=== PATIENT | male | born 1975 | race Caucasian/White ===

== ENCOUNTER 2017-05-26 16:18 | Emergency (ER) | payer MEDICAID ==
[~2017-05-26] VITALS: Ht 165.1 cm; Wt 73.1 kg
[~2017-05-26 16:18] MED LIST: ALPR0.252 PO; LORA-476 PO; METO25TA PO
[2017-05-26 16:42] VITALS: BP 132/92
[2017-05-26 17:33] LABS: BASOPHILS # (AUTO) 0.2 K/uL (0.00-0.22); BASOPHILS % (AUTO) 1.7 % (0.0-2.0); EOSINOPHILS # (AUTO) 0.1 K/uL (0-0.4); EOSINOPHILS % (AUTO) 1.2 % (0.0-4.0); HEMATOCRIT 46.9 % (36-52); HEMOGLOBIN 15.3 g/dL (12.0-18.0); LYMPHOCYTES # (AUTO) 1.3 K/uL (2.0-11.5); LYMPHOCYTES % (AUTO) 10.8 % (20.5-51.1); MEAN CORPUSCULAR HEMOGLOBIN 28 pg (27-31); MEAN CORPUSCULAR HGB CONC 33 g/dL (33-37); MEAN CORPUSCULAR VOLUME 86 fL (80-94); MONOCYTES # (AUTO) 0.4 K/uL (0.8-1.0); MONOCYTES % (AUTO) 3.7 % (1.7-9.3); NEUTROPHILS # (AUTO) 10.1 K/uL (1.8-7.7); NEUTROPHILS % (AUTO) 82.6 % (42.2-75.2); PLATELET COUNT (AUTO) 218 K/uL (140-450); RED BLOOD CELL COUNT(AUTO) 5.47 MIL/uL (4.20-6.10); RED CELL DISTRIBUTION WIDTH 12.5 % (11.6-13.7); WHITE BLOOD COUNT (AUTO) 12.1 K/uL (4.8-10.8)
[2017-05-26 17:39] LABS: ANION GAP 14.6 (8-16); CARBON DIOXIDE 29.9 mmol/L (21-32); CREATININE 0.9 mg/dL (0.7-1.3); POTASSIUM 4.5 mmol/L (3.5-5.1)
[2017-05-26 17:45] LABS: ALBUMIN 4.3 g/dL (3.4-5.0); PROTHROMBIN TIME 10.2 secs (10.8-13.4); TOTAL BILIRUBIN 0.4 mg/dL (0.0-1.0)
--- NOTE | 2017-05-26 19:25 | NUR ---
PATIENT AMBULATED TO ER BED 3.
--- NOTE | 2017-05-26 19:30 | NUR ---
PATIENT IS A 42 Y/O MALE WHO PRESENTS TO THE ED C/O ABD PAIN. PT STATES, "MY STOMACH HAS STARTED TO HURT TODAY SINCE 4." PT REPORTS 8/10 ACHING ABD PAIN THAT DOES NOT RADIATE. PT DENIES CP, SOB, REPORTS NAUSEA/VOMITING DENIES DIARRHEA. PT AAOX4, RR EVEN/UNLABORED. PT REPOSITIONED FOR COMFORT, BED IN LOWEST POSITION. ER MD DR. VILLALBA NOTIFIED. WILL CONTINUE TO MONITOR.
[2017-05-26] MEDS ORDERED: DICYCLOMINE HCL LIQUID 10 MG/5 ML UDC PO ONE (21:25)
[2017-05-26] MEDS ORDERED: LIDOCAINE VISCOUS 2% 20 ML UDC PO ONE (21:25)
[2017-05-26] MEDS ORDERED: ALUMINUM HYD/MAG/SIMETHICONE 30 ML UDC PO ONE (21:25)
[2017-05-26 21:45] VITALS: BP 139/82
--- NOTE | 2017-05-26 21:45 | NUR ---
Patient discharged with v/s stable. Written and verbal after care instructions given and explained. Patient alert, oriented and verbalized understanding of instructions. Ambulatory with steady gait. All questions addressed prior to discharge. ID band removed. Patient advised to follow up with PMD. Rx of OMEPRAZOLE 40MG given. Patient educated on indication of medication including possible reaction and side effects. Opportunity to ask questions provided and answered.
== END 2017-05-26 21:45 | disposition home or self-care (01) ==
LOC: MED 16:18
DX: K29.00 Acute gastritis without bleeding (principal); I10 Essential (primary) hypertension
CPT/HCPCS: 36415; 71046; 80053; 83690; 83880; 84484; 85025; 85610; 85730; 93005; 99285

== ENCOUNTER 2017-05-28 09:49 | Inpatient (IN) | payer MEDICAID ==
[~2017-05-28] VITALS: Ht 160 cm; Wt 78.6 kg
[2017-05-28 09:51] VITALS: BP 115/74
[2017-05-28] MEDS ORDERED: NACL 0.9% 1,000 ML IV ONE (10:00)
[2017-05-28] MEDS ORDERED: ONDANSETRON 4 MG/2 ML VIAL IVP ONE (10:00)
--- NOTE | 2017-05-28 10:12 | NUR ---
PATIENT PRESENTS TO ED WITH C/O rt flank pain, for 2days, nausea, . PT STATES HE HAS EPIGASTRIC PAIN TOO.SKIN IS PINK/WARM/DRY; AAOX4 WITH EVEN AND STEADY GAIT; LUNGS CLEAR BL; HR EVEN AND REGULAR; PT DENIES ANY FEVER, CP, SOB, OR COUGH AT THIS TIME; PATIENT STATES PAIN OF 8/10 AT THIS TIME;PATIENT POSITIONED FOR COMFORT; HOB ELEVATED; BEDRAILS UP X2; BED DOWN. ER MD MADE AWARE OF PT STATUS.
[2017-05-28] MEDS ORDERED: KETOROLAC 30 MG/ML VIAL IVP ONE (10:15)
--- NOTE | 2017-05-28 10:25 | NUR ---
WENT TO CT SCAN ACCOMPANIED BY TECH.
[2017-05-28 10:30] LABS: BASOPHILS # (AUTO) 0.2 K/uL (0.00-0.22); BASOPHILS % (AUTO) 1.5 % (0.0-2.0); EOSINOPHILS # (AUTO) 0.2 K/uL (0-0.4); EOSINOPHILS % (AUTO) 1.5 % (0.0-4.0); HEMOGLOBIN 14.3 g/dL (12.0-18.0); LYMPHOCYTES # (AUTO) 1.3 K/uL (2.0-11.5); LYMPHOCYTES % (AUTO) 10.3 % (20.5-51.1); MEAN CORPUSCULAR HEMOGLOBIN 28 pg (27-31); MEAN CORPUSCULAR HGB CONC 32 g/dL (33-37); MEAN CORPUSCULAR VOLUME 87 fL (80-94); MONOCYTES # (AUTO) 0.8 K/uL (0.8-1.0); NEUTROPHILS # (AUTO) 10.2 K/uL (1.8-7.7); NEUTROPHILS % (AUTO) 80.7 % (42.2-75.2); PLATELET COUNT (AUTO) 196 K/uL (140-450); RED BLOOD CELL COUNT(AUTO) 5.18 MIL/uL (4.20-6.10); RED CELL DISTRIBUTION WIDTH 12.5 % (11.6-13.7); WHITE BLOOD COUNT (AUTO) 12.7 K/uL (4.8-10.8)
[2017-05-28 10:31] LABS: APPEARANCE,URINE CLEAR (CLEAR); BILIRUBIN,URINE 1+ (NEGATIVE); BLOOD, URINE TRACE-I (NEGATIVE); COLOR,URINE YELLOW (YELLOW); LEUKOCYTE ESTERASE ,URINE NEGATIVE (NEGATIVE); NITRITE, URINE NEGATIVE (NEGATIVE); UGLUCOSE NEGATIVE (NEGATIVE)
--- NOTE | 2017-05-28 10:37 | NUR ---
back from ct scan accompanied by arik.
[2017-05-28 11:02] LABS: ANION GAP 12.5 (8-16); CREATININE 0.9 mg/dL (0.7-1.3); POTASSIUM 4.5 mmol/L (3.5-5.1)
--- NOTE | 2017-05-28 11:02 | NUR ---
pt verbalizes relief from pain;no facial grimmacing noted;painscale of 5/10;will continue to monitor.
[2017-05-28 11:08] LABS: ALBUMIN 3.5 g/dL (3.4-5.0); TOTAL BILIRUBIN 0.9 mg/dL (0.0-1.0)
[2017-05-28 11:27] LABS: RBC,URINE 0-5 (RARE) /HPF (0-5); WBC,URINE 0-5 (RARE) /HPF (0-5)
--- NOTE | 2017-05-28 11:47 | NUR ---
US AT BEDSIDE.
--- NOTE | 2017-05-28 12:41 | NUR ---
PT RESTING ON BED;EVEN AND UNLABORED BREATHING;NAD;NEEDS ATTENDED;WILL CONTINUE TO MONITOR.
[2017-05-28] MEDS ORDERED: LISI10TA11 PO (13:04)
[2017-05-28] MEDS ORDERED: ONDANSETRON 4 MG/2 ML VIAL IVP PRN (13:05)
[2017-05-28] MEDS ORDERED: ACETAMINOPHEN 325 MG TAB PO PRN (13:05)
[2017-05-28] MEDS ORDERED: metroNIDAZOLE 500 MG/NS PREMIX 100 ML IV SCH (13:15)
[2017-05-28] MEDS ORDERED: LEVOFLOXACIN 750 MG/D5W PREMIX 150 ML IV SCH (13:30)
[2017-05-28 13:35] VITALS: BP 109/70
--- NOTE | 2017-05-28 13:35 | NUR ---
PATIENT ADMITTED TO THE UNIT. PATIENT AWAKE, ALERT AND ORIENTED. PATIENT ON ROOM AIR. NO S/S OF DISTRESS NOTED. PATIENT REPORTS OF 6/10 ABD PAIN. NO VOMITING AT THIS TIME. IV LINE NOTED TO THE RIGHT AC. PATIENT PLACED ON TELE MONITORING. BED LOWERED WITH CALL LIGHT WITHIN REACH. WILL CONTINUE TO MONITOR
--- NOTE | 2017-05-28 13:42 | NUR ---
Patient will be admitted to care of DR BRUNO. Admited to TELE. Will go to room 120 B. Belongings list completed. Report to LESVIA GRIGGS.
[2017-05-28 13:55] LABS: BARBITURATE, URINE NEG. ng/ml (NEG <=200); BENZODIAZEPINE, URINE NEG. ng/mL (NEG <=200); CANNABINOID, URINE NEG. ng/mL (NEG <=50); COCAINE, URINE NEG. ng/mL (NEG <=300); OPIATE, URINE NEG. ng/mL (NEG <=2000); PHENCYCLIDINE SCREEN,URINE NEG. ng/mL (NEG <=25)
[2017-05-28 13:55] LABS: PROTHROMBIN TIME 11.3 secs (10.8-13.4)
[2017-05-28 14:09] LABS: CHOL/HDL RATIO 2.7 (1-4.5); FREE T4 (FREE THYROXINE) 1.23 ng/dL (0.76-1.46); MAGNESIUM 1.9 mg/dL (1.8-2.4); PHOSPHORUS 1.6 mg/dL (2.5-4.9); THYROID STIMULATING HORMONE 1.91 uIU/mL (0.34-3.74)
[2017-05-28] MEDS: NACL 0.9% 1,000 ML IV SCH (14:09)
[2017-05-28] MEDS ORDERED: HYDROmorphone PFS 2 MG/ML SYR IVP PRN (14:20)
--- NOTE | 2017-05-28 14:30 | NUR ---
PATIENT AMBULATED TO THE BATHROOM TO VOID
--- NOTE | 2017-05-28 15:00 | NUR ---
PATIENT SEEN BY DR MONTEZ
[2017-05-28] MEDS ORDERED: ATI.5 PO (15:52)
[2017-05-28 16:00] VITALS: BP 110/67
--- NOTE | 2017-05-28 19:19 | NUR ---
PATIENT REPORT GIVEN AT BEDSIDE. PATIENT ENDORSED IN STABLE CONDITION
--- NOTE | 2017-05-28 19:20 | NUR ---
RECEIVED HANDOFF REPORT FROM AM RN. PATIENT A&OX4. PATIENT DENIES PAIN. IV SITE PATENT AND INTACT. FAMILY AT BEDSIDE. NO SIGNS OR SYMPTOMS OF ACUTE DISTRESS NOTED. SAFETY MEASURES ENSURED. CALL LIGHT WITHIN REACH. WILL CONTINUE TO MONITOR.
[2017-05-28 20:00] VITALS: BP 112/71
[2017-05-28] MEDS: DOCUSATE SODIUM 100 MG GELCAP PO SCH (20:58)
[2017-05-29] VITALS: BP 109/72
--- NOTE | 2017-05-29 02:30 | NUR ---
PT ALERT AND ABLE TO MAKE NEEDS KNOWN. NO ACUTE DISTRESS NOTED. AND FAMILY AT BEDSIDE. WILL CONT TO MONITOR PT.
[2017-05-29 04:00] VITALS: BP 103/63
[2017-05-29] MEDS: HYDROmorphone PFS 2 MG/ML SYR IVP PRN (04:52)
[2017-05-29 06:39] LABS: BASOPHILS # (AUTO) 0.1 K/uL (0.00-0.22); BASOPHILS % (AUTO) 0.9 % (0.0-2.0); EOSINOPHILS # (AUTO) 0.2 K/uL (0-0.4); EOSINOPHILS % (AUTO) 2.7 % (0.0-4.0); HEMATOCRIT 37.6 % (36-52); HEMOGLOBIN 12.7 g/dL (12.0-18.0); LYMPHOCYTES # (AUTO) 1.1 K/uL (2.0-11.5); LYMPHOCYTES % (AUTO) 12.8 % (20.5-51.1); MEAN CORPUSCULAR HEMOGLOBIN 29 pg (27-31); MEAN CORPUSCULAR HGB CONC 34 g/dL (33-37); MEAN CORPUSCULAR VOLUME 85 fL (80-94); MONOCYTES # (AUTO) 0.6 K/uL (0.8-1.0); MONOCYTES % (AUTO) 7.3 % (1.7-9.3); NEUTROPHILS # (AUTO) 6.6 K/uL (1.8-7.7); NEUTROPHILS % (AUTO) 76.3 % (42.2-75.2); PLATELET COUNT (AUTO) 174 K/uL (140-450); RED BLOOD CELL COUNT(AUTO) 4.42 MIL/uL (4.20-6.10); RED CELL DISTRIBUTION WIDTH 12.9 % (11.6-13.7); WHITE BLOOD COUNT (AUTO) 8.6 K/uL (4.8-10.8)
[2017-05-29 07:05] LABS: ANION GAP 9.9 (8-16); CARBON DIOXIDE 30.7 mmol/L (21-32); CREATININE 0.8 mg/dL (0.7-1.3); POTASSIUM 4.6 mmol/L (3.5-5.1)
[2017-05-29 07:08] LABS: MAGNESIUM 1.9 mg/dL (1.8-2.4); PHOSPHORUS 2.2 mg/dL (2.5-4.9)
--- NOTE | 2017-05-29 07:16 | NUR ---
ENDORSED PLAN OF CARE TO AM RN. PATIENT IN STABLE CONDITION.
--- NOTE | 2017-05-29 07:48 | NUR ---
RECEIVED REPORT FROM TOLL LINEMAN NURSE FOR CONTINUITY OF CARE AT BESIDE. PATIENT ALERT AND ABLE TO VERBALIZE NEEDS. NO ACUTE DISTRESS NOTED. AT BEDSIDE. PT WITH IV TO RAC 20G OF NS @ 50CC/HR. WILL CONT TO MONITOR PT.
[2017-05-29 08:00] VITALS: BP 119/69
--- NOTE | 2017-05-29 08:45 | NUR ---
MD IN TO SEE PATIENT. UPDATED PATIENT ON HIS PLAN OF CARE WITH POSSIBLE SURGERY TOMORROW AM. NPO AT MIDNIGHT TONIGHT. WILL CONT TO MONITOR PT.
[2017-05-29] MEDS: DOCUSATE SODIUM 100 MG GELCAP PO SCH ×2 (09:41→20:35)
--- NOTE | 2017-05-29 09:42 | NUR ---
ADMINISTERED SCHEDULE MEDICATION. PATIENT TOLERATED WELL. NO C/O PAIN OR DISCOMFORT. AT BEDSIDE. FAMILY VISITING. WILL CONT TO MONITOR PT.
[2017-05-29] MEDS: NACL 0.9% 1,000 ML IV SCH (11:03)
--- NOTE | 2017-05-29 11:03 | NUR ---
REPLACED IV FLUIDS OF NS. PT IN BED WITH EYES CLOSED RESTING. RESP EVEN AND UNLABORED. NO ACUTE DISTRESS NOTED. AT BEDSIDE. VERBALIZED PT HAD NOT SLEPT WELL LAST NIGHT.WILL CONT TO MONITOR PT.
[2017-05-29 12:34] VITALS: BP 112/70
--- NOTE | 2017-05-29 12:36 | NUR ---
PATIENT AWAKE IN BED HAVING LUNCH. VS CHECKED. VSS. AT BEDSIDE. WILL CONT TO MONITOR PT.
--- NOTE | 2017-05-29 14:30 | NUR ---
PATIENT AWAKE IN BED WITH AT BESIDE. NO ACUTE DISTRESS NOTED. NO C/O PAIN OR DISCOMFORT.BED IN LOW POSITION. CALL LIGHT WITHIN REACH. WILL CONT TO MONITOR PT.
--- NOTE | 2017-05-29 16:30 | NUR ---
PATIENT ALERT AND ABLE TO VERBALIZE NEEDS, NO ACUTE DISTRESS, NO C/O PAIN OR DISCOMFORT. CALL LIGHT WITHIN REACH. AT BEDSIDE.WILL CONT TO MONITOR PT.
[2017-05-29 16:32] VITALS: BP 106/64
--- NOTE | 2017-05-29 18:00 | NUR ---
PATIENT ALERT AND ABLE TO MAKE NEEDS KNOWN. NO ACUTE DISTRESS NOTED. NO C/O PAIN OR DISCOMFORT. AT BEDSIDE WELL DAUGHTERS. CALL LIGHT WITHIN REACH, WILL CONT TO MONITOR PT.
--- NOTE | 2017-05-29 19:20 | NUR ---
PATIENT IS AWAKE ALERT AMBULATORY DENIES PAIN CALM AT THIS TIME.PATIENT IS AWARE HE WILL HAVE A PROCEDURE DONE TOMORROW AND HE CANNOT DRINK OR EAT ANYTHING AFTER MIDNIGHT. CALL LIGHT WITHIN REACH FAMILY AT BEDSIDE WITH THE PATIENT.
--- NOTE | 2017-05-29 19:20 | NUR ---
ENDORSED REPORT TO HOTEL HOUSEKEEPER NURSE AT BEDSIDE FOR CONTINUITY OF CARE.
--- NOTE | 2017-05-29 19:25 | NUR ---
PATIENT IS TELLING ME HAS TO STAY WITH THE PATIENT TAYLOR I INFORMED HER OF HOSPITAL POLICY BUT INSISTS SHE SAYS ITS BECAUSE PATIENT GETS VERY ANXIOUS AND SHE DOESN'T STAY WITH HIM HE WILL LEAVE THE HOSPITAL. I SPOKE TO THE PATIENT AND PATIENT STATES,"IF MY LEAVES I WILL GO HOME TOO I SUFFER FROM ANXIETY AND I NEED HER I WON'T BE ABLE TO STAY HERE THE NIGHT." I SPOKE TO LESVIA RUSSELL AND SHE SAID ITS OK FOR THE TO STAY LONG ITS OK WITH THE ROOM MATE. I ASKED PATIENT'S ROOM MATE IF HE FEELS COMFORTABLE WITH THE LADY STAYING HE SAID." YES, THERE IS NO PROBLEM." I ASKED HIM IF HE WOULD LIKE TO MOVE TO A DIFFERENT ROOM HE SAID." NO, HE HAS NO PROBLEM WITH THE PATIENT'S STAYING." SO STAYING.
[2017-05-29 20:00] VITALS: BP 116/72
--- NOTE | 2017-05-29 20:00 | NUR ---
Patient's Plan of Care was discussed and reviewed with JACQUELIN: MIRELLA
--- NOTE | 2017-05-29 20:20 | NUR ---
PATIENT CAME AND INFORMED ME THAT PATIENT IS HAVING A LOT OF PAIN TO HIS IV SITE AND I WENT TO CHECK ON HIS IV SITE AND I SEE NO REDNESS OR SWELLING OR PUFFINESS.I ASKED THE PATIENT IF HE WOULD LIKE ME TO CHANGE TO IV PATIENT STATES,"YES PLEASE IF YOU CAN MOVE IT TO THE ARM THAT WOULD BE BETTER."I WILL CHANGE HIS IV LINE.
--- NOTE | 2017-05-29 20:30 | NUR ---
I RESTARTED PATIENT IV SITE TO LT FOREARM G#22,GOOD BLOOD RETURN NOTED.IVF INFUSING WELL.PATIENT TOLERATED PROCEDURE WELL.I REMOVED THE IV TO RT AC G#20 PATIENT STATES,"PLEASE REMOVE IT TAKE IT OFF I DON'T WANT IT." PATIENT IV TO RT AC WAS DISCONTINUED.
--- NOTE | 2017-05-29 22:30 | NUR ---
PATIENT'S WAS GIVEN A PILLOW AND SHE IS SITTING NEXT TO THE BED IN A CHAIR.PATIENT STATES,"I FEEL LESS ANXIOUS WITH HER HERE WITH ME, NOW I CAN SLEEP." PATIENT DENIES PAIN CALL LIGHT WITHIN REACH.
[2017-05-30] VITALS: BP 97/60
--- NOTE | 2017-05-30 00:02 | NUR ---
PATIENT IS CURRENTLY SLEEPING HE IS AWARE THAT HE IS NPO AND CANNOT DRINK OR EAT ANYTHING.
--- NOTE | 2017-05-30 03:55 | NUR ---
PATIENT IS CURRENTLY RESTING IN BED AT THIS TIME NO DISTRESS WILL CONTINUE TO MONITOR.CALL LIGHT WITHIN REACH.
[2017-05-30 04:00] VITALS: BP 102/56
[2017-05-30] MEDS: HYDROmorphone PFS 2 MG/ML SYR IVP PRN (04:58)
[2017-05-30] MEDS: NACL 0.9% 1,000 ML IV SCH ×2 (05:03→05:45)
--- NOTE | 2017-05-30 06:28 | NUR ---
PATIENT IS CURRENTLY RESTING IN BED IVF INFUSING WELL IV SITE PATENT.CALL LIGHT WITHIN REACH.
[2017-05-30 06:40] LABS: BASOPHILS # (AUTO) 0.1 K/uL (0.00-0.22); BASOPHILS % (AUTO) 1.1 % (0.0-2.0); EOSINOPHILS # (AUTO) 0.3 K/uL (0-0.4); HEMATOCRIT 41.2 % (36-52); HEMOGLOBIN 13.6 g/dL (12.0-18.0); LYMPHOCYTES # (AUTO) 1.1 K/uL (2.0-11.5); LYMPHOCYTES % (AUTO) 15.2 % (20.5-51.1); MEAN CORPUSCULAR HEMOGLOBIN 28 pg (27-31); MEAN CORPUSCULAR HGB CONC 33 g/dL (33-37); MEAN CORPUSCULAR VOLUME 86 fL (80-94); MONOCYTES # (AUTO) 0.4 K/uL (0.8-1.0); MONOCYTES % (AUTO) 5.9 % (1.7-9.3); NEUTROPHILS # (AUTO) 5.2 K/uL (1.8-7.7); NEUTROPHILS % (AUTO) 73.8 % (42.2-75.2); PLATELET COUNT (AUTO) 206 K/uL (140-450); RED BLOOD CELL COUNT(AUTO) 4.79 MIL/uL (4.20-6.10); RED CELL DISTRIBUTION WIDTH 12.4 % (11.6-13.7); WHITE BLOOD COUNT (AUTO) 7.2 K/uL (4.8-10.8)
--- NOTE | 2017-05-30 07:24 | NUR ---
PATIENT ENDORSED TO LESVIA VICTOR SHE WILL RESUME CARE.
--- NOTE | 2017-05-30 07:25 | NUR ---
RECEIVED REPORT FROM DIRECTOR ZONE NURSE. PT IS SLEEPING IN BED BUT EASILY AWAKEN, PT IS AAOX4, AMBULATORY, SKIN IS INTACT, IV IS ON THE LEFT FOREARM, PATENT, INTACT, FLUSHING WELL, NO S/S OF RESPIRATORY DISTRESS OR DISCOMFORT NOTED, DISCUSSED PLAN OF CARE WITH PT, PT VERBALIZED UNDERSTANDING, SAFETY/FALL PRECAUTIONS ARE IN PLACE, PATIENT'S FAMILY MEMBER IS AT BEDSIDE, CALL LIGHT IS WITHIN REACH, WILL CONTINUE TO MONITOR.
[2017-05-30 07:45] LABS: ANION GAP 12.4 (8-16); CARBON DIOXIDE 29.2 mmol/L (21-32); CREATININE 0.8 mg/dL (0.7-1.3); POTASSIUM 4.6 mmol/L (3.5-5.1)
[2017-05-30 07:48] LABS: MAGNESIUM 1.9 mg/dL (1.8-2.4); PHOSPHORUS 3.6 mg/dL (2.5-4.9)
[2017-05-30 08:00] VITALS: BP 123/67
[2017-05-30] MEDS: DOCUSATE SODIUM 100 MG GELCAP PO SCH ×2 (08:10→21:15)
--- NOTE | 2017-05-30 09:35 | NUR ---
PT IS RESTING IN BED AT THIS TIME, PATIENT'S FAMILY MEMBERS ARE AT BEDSIDE, CALL LIGHT WITHIN REACH.
--- NOTE | 2017-05-30 09:46 | NUR ---
PATIENT HAS BEEN SCREENED AND CATEGORIZED LOW NUTRITION RISK. PATIENT WILL BE SEEN WITHIN 7 DAYS OF ADMISSION. 06/03/[address]
[2017-05-30] MEDS ORDERED: BUPIVACAINE-MPF 0.25% 30 ML VIAL INJ ONE (10:13)
--- NOTE | 2017-05-30 10:55 | NUR ---
PT TAKEN OFF UNIT AND TAKEN TO OR FOR PROCEDURE.
[2017-05-30] MEDS ORDERED: DEXAMETHASONE 4 MG/ML VIAL ONE (11:10)
[2017-05-30] MEDS ORDERED: PROPOFOL 200 MG/20 ML VIAL IV ONE (11:10)
[2017-05-30] MEDS ORDERED: ROCURONIUM 50 MG/5 ML VIAL IV ONE (11:10)
[2017-05-30] MEDS ORDERED: ONDANSETRON 4 MG/2 ML VIAL ONE (11:10)
[2017-05-30] MEDS ORDERED: SEVOFLURANE 250 ML BTL INH ONE (11:10)
[2017-05-30] MEDS ORDERED: MIDAZOLAM 2 MG/2 ML VIAL ONE (11:10)
[2017-05-30] MEDS ORDERED: fentaNYL 0.05 MG/ML VIAL ONE (11:10)
[2017-05-30] MEDS ORDERED: SUCCINYLCHOLINE CHLORIDE 200 MG/10 ML VIAL IVP ONE (11:10)
[2017-05-30] MEDS ORDERED: MEPERIDINE 50 MG/ML SYR ONE (11:10)
[2017-05-30] MEDS ORDERED: LEVOFLOXACIN 500 MG/D5W PREMIX 100 ML IV ONE (11:50)
[2017-05-30] MEDS ORDERED: LACTATED RINGERS 1,000 ML IV SCH (12:01)
[2017-05-30] MEDS ORDERED: HYDROmorphone 1 MG/ML AMP IVP PRN (12:05)
[2017-05-30] MEDS ORDERED: diphenhydrAMINE 50 MG/ML VIAL IVP PRN (12:05)
[2017-05-30] MEDS ORDERED: ONDANSETRON 4 MG/2 ML VIAL IVP PRN (12:05)
[2017-05-30] MEDS ORDERED: MEPERIDINE 25 MG/ML SYR IVP PRN (12:05)
[2017-05-30] MEDS ORDERED: THROMBIN KIT 20 MU VIAL TP ONE (12:26)
[2017-05-30] MEDS: DEXT 5% / NACL 0.45% 1,000 ML IV SCH ×2 (13:20→23:20)
[2017-05-30] MEDS ORDERED: metroNIDAZOLE 500 MG/NS PREMIX 100 ML IV ONE (13:26)
[2017-05-30] MEDS ORDERED: MEPERIDINE 25 MG/ML SYR ONE (13:37)
[2017-05-30 13:49] LABS: BASOPHILS # (AUTO) 0.2 K/uL (0.00-0.22); BASOPHILS % (AUTO) 2.1 % (0.0-2.0); EOSINOPHILS # (AUTO) 0.1 K/uL (0-0.4); EOSINOPHILS % (AUTO) 1.2 % (0.0-4.0); HEMATOCRIT 39.2 % (36-52); HEMOGLOBIN 13.2 g/dL (12.0-18.0); LYMPHOCYTES # (AUTO) 0.5 K/uL (2.0-11.5); LYMPHOCYTES % (AUTO) 5.7 % (20.5-51.1); MEAN CORPUSCULAR HEMOGLOBIN 29 pg (27-31); MEAN CORPUSCULAR HGB CONC 34 g/dL (33-37); MEAN CORPUSCULAR VOLUME 85 fL (80-94); MONOCYTES # (AUTO) 0.1 K/uL (0.8-1.0); MONOCYTES % (AUTO) 1.2 % (1.7-9.3); NEUTROPHILS # (AUTO) 8.7 K/uL (1.8-7.7); NEUTROPHILS % (AUTO) 89.8 % (42.2-75.2); PLATELET COUNT (AUTO) 189 K/uL (140-450); RED BLOOD CELL COUNT(AUTO) 4.59 MIL/uL (4.20-6.10); RED CELL DISTRIBUTION WIDTH 12.5 % (11.6-13.7)
[2017-05-30 14:01] LABS: WHITE BLOOD COUNT (AUTO) 9.6 K/uL (4.8-10.8)
[2017-05-30] MEDS: HYDROmorphone PFS 2 MG/ML SYR ONE ×2 (14:07→14:17)
[2017-05-30 14:10] LABS: CARBON DIOXIDE 29.2 mmol/L (21-32); CREATININE 0.8 mg/dL (0.7-1.3); POTASSIUM 4.2 mmol/L (3.5-5.1)
[2017-05-30 14:16] LABS: ALBUMIN 2.9 g/dL (3.4-5.0); TOTAL BILIRUBIN 0.6 mg/dL (0.0-1.0)
[2017-05-30] MEDS: MIDAZOLAM 2 MG/2 ML VIAL ONE ×2 (14:22→14:32)
[2017-05-30] MEDS ORDERED: MIDAZOLAM 2 MG/2 ML VIAL IV ONE (14:40)
--- NOTE | 2017-05-30 15:00 | NUR ---
PT RETURNED TO UNIT FROM OR. AOX4. PT HAS 4 ABDOMINAL INCISIONS CLOSED WITH GLUE. NO S/S OF RESPIRATORY DISTRESS OR DISCOMFORT NOTED. B/P 112/75, HR 125, SAO2 94%, TEMP. 98.3 F ORAL. PT RESTING IN BED WITH FAMILY BY HIS SIDE. CALL LIGHT WITHIN REACH. WILL CONTINUE TO MONITOR.
[2017-05-30 16:00] VITALS: BP 111/71
--- NOTE | 2017-05-30 16:00 | NUR ---
CALLED DR. MONTEZ WITH THE PATIENT'S RECENT LAB RESULTS.
--- NOTE | 2017-05-30 17:00 | NUR ---
PT RESTING IN BED. FAMILY AT HIS BEDSIDE. PT ON CLEAR LIQUID DIET. PT FEELING FULL AND SLOWLY EATING DINNER WITH BREAKS IN BETWEEN. CALL LIGHT WITHIN REACH. BED IN LOWEST POSITION. WILL CONTINUE TO MONITOR.
[2017-05-30] MEDS: HYDROcodone/APAP 7.5/325 MG 1 TAB PO PRN (18:34)
--- NOTE | 2017-05-30 18:35 | NUR ---
PT HAS COMPLAINED OF PAIN 6/10. WILL MEDICATE WITH PRN MEDICATION. FAMILY IS AT BEDSIDE. CALL LIGHT IS WITHIN REACH. WILL CONTINUE TO MONITOR.
--- NOTE | 2017-05-30 19:27 | NUR ---
RECEIVED REPORT FROM DAY SHIFT NURSE. PT IN BED, NO C/O PAIN AT THIS TIME. AT BEDSIDE. NO DISTRESS NOTED. 4 ABDOMINAL INCISION CLOSED WITH GLUE. NO BLEEDING NOTED. IV TO LEFT FA #22G, D5 1/2 NS AT 100 ML/HR, INFUSING WELL. CALL LIGHT WITHIN REACH. WILL CONTINUE TO MONITOR.
--- NOTE | 2017-05-30 19:27 | NUR ---
PT RESTING IN BED. AT BEDSIDE. PT STABLE AT THIS TIME. ENDORSED TO SALT MAKER NURSE FOR CONTINUITY OF CARE.
[2017-05-30] MEDS: metroNIDAZOLE 500 MG/NS PREMIX 100 ML IV SCH (21:15)
--- NOTE | 2017-05-30 21:30 | NUR ---
PT C/O FEW DROPS OF BLOOD ON HIS URINE. REPORTED TO DR. HUERTA. PER , MAYBE IT'S FROM THE SURGERY. WILL CONTINUE TO MONITOR. CALL LIGHT WITHIN REACH.
--- NOTE | 2017-05-30 23:20 | NUR ---
PT RESTING IN BED WITH EYES CLOSED . EASILY AROUSABLE. AT BEDSIDE. NO DISTRESS NOTED. CALL LIGHT WITHIN REACH.
[2017-05-31] VITALS: BP 118/69
[2017-05-31] MEDS: HYDROmorphone PFS 2 MG/ML SYR IVP PRN (01:43)
--- NOTE | 2017-05-31 02:10 | NUR ---
PT'S URINE CLEAR YELLOW IN COLOR. NO BLEEDING NOTED.
--- NOTE | 2017-05-31 04:30 | NUR ---
PT SLEEPING BUT WAKES EASILY. AT BEDSIDE. NO C/O PAIN OR DISCOMFORT. CALL LIGHT WITHIN REACH.
[2017-05-31] MEDS: metroNIDAZOLE 500 MG/NS PREMIX 100 ML IV SCH ×3 (05:57→20:45)
[2017-05-31 06:36] LABS: BASOPHILS # (AUTO) 0.1 K/uL (0.00-0.22); BASOPHILS % (AUTO) 1.1 % (0.0-2.0); EOSINOPHILS # (AUTO) 0.1 K/uL (0-0.4); EOSINOPHILS % (AUTO) 0.8 % (0.0-4.0); HEMATOCRIT 37.4 % (36-52); HEMOGLOBIN 12.8 g/dL (12.0-18.0); LYMPHOCYTES # (AUTO) 1.1 K/uL (2.0-11.5); LYMPHOCYTES % (AUTO) 13.1 % (20.5-51.1); MEAN CORPUSCULAR HEMOGLOBIN 29 pg (27-31); MEAN CORPUSCULAR HGB CONC 34 g/dL (33-37); MEAN CORPUSCULAR VOLUME 85 fL (80-94); MONOCYTES % (AUTO) 11.1 % (1.7-9.3); NEUTROPHILS # (AUTO) 6.4 K/uL (1.8-7.7); NEUTROPHILS % (AUTO) 73.9 % (42.2-75.2); PLATELET COUNT (AUTO) 194 K/uL (140-450); RED BLOOD CELL COUNT(AUTO) 4.38 MIL/uL (4.20-6.10); RED CELL DISTRIBUTION WIDTH 12.4 % (11.6-13.7); WHITE BLOOD COUNT (AUTO) 8.7 K/uL (4.8-10.8)
[2017-05-31 07:00] LABS: ALBUMIN 2.8 g/dL (3.4-5.0); ANION GAP 10.9 (8-16); CARBON DIOXIDE 30.8 mmol/L (21-32); CREATININE 0.9 mg/dL (0.7-1.3); POTASSIUM 3.7 mmol/L (3.5-5.1); TOTAL BILIRUBIN 0.7 mg/dL (0.0-1.0)
--- NOTE | 2017-05-31 07:25 | NUR ---
ENDORSED PT TO DAY SHIFT NURSE. PT IN STABLE CONDITION.
--- NOTE | 2017-05-31 07:30 | NUR ---
RECEIVED REPORT FROM CHAIN HOOKER NURSE, PT IS RESTING IN BED, PT IS AAOX4, AMBULATORY, PT HAS IV ON THE LEFT FA, PATENT, INTACT, FLUSHING WELL, PT IS S/P LAP TAVO ON 05/30/17, PT HAS 4 ABDOMINAL INCISION CLEAN AND INTACT AT THIS TIMIE, NO S/S OF RESPIRATORY DISTRESS OR DISCOMFORT NOTED, DISCUSSED PLAN OF CARE WITH PT, PT VERBALIZED UNDERSTANDING, PATIENT'S IS AT BEDSIDE, CALL LIGHT IS WITHIN REACH, WILL CONTINUE TO MONITOR
[2017-05-31 08:00] VITALS: BP 116/73
[2017-05-31] MEDS ORDERED: LORazepam 1 MG TAB PO PRN (08:15)
--- NOTE | 2017-05-31 08:30 | NUR ---
PT IN BED RESTING. VITAL SIGNS STABLE. 98F, HR 111, 116/73, R20, 98% AND IN PAIN 6 OUT OF 10. WILL MEDICATE PRN. ENCOURAGED THE USE OF THE INCENTIVE SPIROMETER AND TO AMBULATE. SPOUSE IN ROOM. CALL LIGHT WITHIN REACH. BED IN LOWEST POSITION. WILL CONTINUE TO MONITOR.
[2017-05-31] MEDS: DOCUSATE SODIUM 100 MG GELCAP PO SCH ×2 (08:40→20:46)
[2017-05-31] MEDS: busPIRone 5 MG TAB PO SCH ×2 (08:41→20:46)
[2017-05-31] MEDS: LEVOFLOXACIN 500 MG/D5W PREMIX 100 ML IV SCH (08:41)
[2017-05-31] MEDS ORDERED: MAGNESIUM CITRATE 300 ML BTL PO SCH (09:00)
[2017-05-31] MEDS: DEXT 5% / NACL 0.45% 1,000 ML IV SCH ×2 (09:49→20:46)
--- NOTE | 2017-05-31 10:25 | NUR ---
PT AMBULATING WITH SPOUSE SLOWLY DOWN THE [place]. ANTI SLIP SOCKS IN PLACE. WILL CONTINUE TO MONITOR.
--- NOTE | 2017-05-31 12:35 | NUR ---
PT IN BED RESTING. SPOUSE AT BEDSIDE. PT STABLE AT THIS TIME. CALL LIGHT WITHIN REACH. BED IN LOWEST POSITION. WILL CONTINUE TO MONITOR.
--- NOTE | 2017-05-31 14:00 | NUR ---
DR. MOSHER VISITED PT. TOLD PT TO KEEP WALKING AND NOTIFY NURSE WHEN GAS IS PASSED OR STOOL. PT WANTING TO GO HOME. THE HOSPITAL MAKES HIM ANXIOUS. SPOUSE AT BEDSIDE. CALL LIGHT WITHIN REACH. BED IN LOWEST POSITION. WILL CONTINUE TO MONITOR.
[2017-05-31 16:00] VITALS: BP 120/73
--- NOTE | 2017-05-31 16:00 | NUR ---
PT IN BED RESTING. PT STABLE AT THIS TIME. 99.3F, 110HR, 120/73, 24R, 94%, NO PAIN. CALL LIGHT WITHIN REACH. BED IN LOWEST POSITION. FAMILY AT BEDSIDE. WILL CONTINUE TO MONITOR.
[2017-05-31] MEDS: HYDROcodone/APAP 7.5/325 MG 1 TAB PO PRN (16:33)
--- NOTE | 2017-05-31 17:50 | NUR ---
PT AMBULATING WITH SPOUSE SLOWLY DOWN THE [place]. ANTI SLIP SOCKS IN PLACE. WILL CONTINUE TO MONITOR.
--- NOTE | 2017-05-31 18:35 | NUR ---
PT IN BED RESTING. PT STABLE AT THIS TIME. CALL LIGHT WITHIN REACH. BED IN LOWEST POSITION. FAMILY AT BEDSIDE. WILL CONTINUE TO MONITOR.
--- NOTE | 2017-05-31 19:21 | NUR ---
PT STABLE AT THIS TIME. ENDORSED PT TO MINUTE CLERK NURSE FOR CONTINUITY OF CARE.
--- NOTE | 2017-05-31 19:30 | NUR ---
RECEIVED REPORT FROM DAY SHIFT RN, PATIENT RESTING IN BED, AWAKE ALERT ORIENTED X4, NO S/S OF DISTRESS NOTED, RESPIRATION EVEN AND UNLABORED, ON ROOM AIR. PATIENT HAS NOT PASSED GAS YET, PLAN OF CARE DISCUSSED, PATIENT VERBALIZED UNDERSTANDING, CALL LIGHT WITHIN REACH, SAFETY MEASURE ENSURED, WILL CONTINUE TO MONITOR.
--- NOTE | 2017-05-31 20:55 | NUR ---
DUE MEDICATION GIVEN, PATIENT TOLERATED WELL. NO S/S OF DISTRESS NOTED, RESPIRATION EVEN AND UNLABORED, PATIENT STATED HE PASSED A LITTLE BIT GAS. CALL LIGHT WITHIN REACH, SAFETY MEASURE ENSURED, WILL CONTINUE TO MONITOR.
[2017-06-01 00:06] VITALS: BP 118/69
[2017-06-01] MEDS: HYDROcodone/APAP 7.5/325 MG 1 TAB PO PRN ×2 (00:06→13:30)
--- NOTE | 2017-06-01 00:15 | NUR ---
STATED ABDOMINAL PAIN 5/10, VITAL SIGNS STABLE, PAIN MEDICATION GIVEN ORDERED. CALL LIGHT WITHIN REACH, SAFETY MEASURE ENSURED, WILL CONTINUE TO MONITOR.
--- NOTE | 2017-06-01 02:55 | NUR ---
NO CHANGE IN CONDITION, PATIENT IS SLEEPING, NO S/S OF DISTRESS NOTED, RESPIRATION EVEN AND UNLABORED, CALL LIGHT WITHIN REACH, SAFETY MEASURE ENSURED, WILL CONTINUE TO MONITOR.
--- NOTE | 2017-06-01 04:04 | NUR ---
PATIENT WALKED IN THE HALLWAY WITH HIS , NOW IS SITTING IN THE BED, NO S/S OF DISTRESS NOTED, RESPIRATION EVEN AND UNLABORED, CALL LIGHT WITHIN REACH, SAFETY MEASURE ENSURED, WILL CONTINUE TO MONITOR.
[2017-06-01] MEDS: metroNIDAZOLE 500 MG/NS PREMIX 100 ML IV SCH (04:37)
[2017-06-01] MEDS: DEXT 5% / NACL 0.45% 1,000 ML IV SCH (04:38)
--- NOTE | 2017-06-01 04:44 | NUR ---
DUE MEDICATION GIVEN, PATIENT TOLERATED WELL. NO S/S OF DISTRESS NOTED, RESPIRATION EVEN AND UNLABORED, CALL LIGHT WITHIN REACH, SAFETY MEASURE ENSURED, WILL CONTINUE TO MONITOR.
[2017-06-01 06:15] LABS: BASOPHILS # (AUTO) 0.1 K/uL (0.00-0.22); EOSINOPHILS # (AUTO) 0.1 K/uL (0-0.4); MONOCYTES # (AUTO) 0.9 K/uL (0.8-1.0)
[2017-06-01 06:34] LABS: BASOPHILS % (AUTO) 0.7 % (0.0-2.0); EOSINOPHILS % (AUTO) 1.1 % (0.0-4.0); HEMATOCRIT 36.9 % (36-52); HEMOGLOBIN 12.3 g/dL (12.0-18.0); LYMPHOCYTES % (AUTO) 11.2 % (20.5-51.1); MEAN CORPUSCULAR HEMOGLOBIN 29 pg (27-31); MEAN CORPUSCULAR HGB CONC 33 g/dL (33-37); MEAN CORPUSCULAR VOLUME 86 fL (80-94); MONOCYTES % (AUTO) 10.1 % (1.7-9.3); NEUTROPHILS % (AUTO) 76.9 % (42.2-75.2); PLATELET COUNT (AUTO) 182 K/uL (140-450); RED BLOOD CELL COUNT(AUTO) 4.29 MIL/uL (4.20-6.10); RED CELL DISTRIBUTION WIDTH 12.4 % (11.6-13.7); WHITE BLOOD COUNT (AUTO) 9.1 K/uL (4.8-10.8)
[2017-06-01 06:38] LABS: ANION GAP 11.2 (8-16); CARBON DIOXIDE 30.6 mmol/L (21-32); CREATININE 0.8 mg/dL (0.7-1.3); POTASSIUM 3.8 mmol/L (3.5-5.1)
[2017-06-01 06:46] LABS: MAGNESIUM 1.7 mg/dL (1.8-2.4); PHOSPHORUS 3.2 mg/dL (2.5-4.9)
--- NOTE | 2017-06-01 06:50 | NUR ---
BS 245, ADMINISTER HUMALOG 4UNITS PER SLIDING SCALE. Addendum: 06/01/17 at 0702 by Josseline Parrish RN WRONG PATIENT
--- NOTE | 2017-06-01 07:22 | NUR ---
ENDORSED PLAN OF CARE TO DAY SHIFT RN, PATIENT IS IN STABLE CONDITION, NO S/S OF DISTRESS NOTED.
--- NOTE | 2017-06-01 07:23 | NUR ---
RECEIVED REPORT FROM CYLINDER PRESS FEEDER RN. PATIENT IS AAOX4. PATIENT IS CURRENTLY GOING TO WALK AROUND THE UNIT WITH HIS . TOLERATING AMBULATION WELL. NO SIGNS AND SYMPTOMS OF ACUTE DISTRESS NOTED AT THIS TIME. PATIENT HAS IV TO LEFT FOREARM 22G, INFUSING D5 1/2 NS AT 100 ML/HR. SITE IS CLEAN, DRY, PATENT AND INTACT. DISCUSSED PLAN OF CARE WITH PATIENT AND HE VERBALIZED UNDERSTANDING. BED IN LOWEST POSITION, SIDE RAILS UP X2, CALL LIGHT PLACED ON BED WITHIN REACH AND LET PATIENT KNOW WHERE I SET IT. WILL CONTINUE TO MONITOR.
[2017-06-01 08:00] VITALS: BP 116/76
[2017-06-01] MEDS: busPIRone 5 MG TAB PO SCH (09:00)
[2017-06-01] MEDS ORDERED: CLIN300C5 PO (09:11)
[2017-06-01] MEDS ORDERED: BUS5 PO (09:11)
[2017-06-01] MEDS ORDERED: LEVO750T2 PO (09:11)
[2017-06-01] MEDS ORDERED: DOCU-299 PO (09:11)
[2017-06-01] MEDS ORDERED: ACET-9529 PO (09:11)
[2017-06-01] MEDS ORDERED: ASCO1CAP75 PO (09:12)
[2017-06-01] MEDS ORDERED: IBUP-1842 PO (09:24)
[2017-06-01] MEDS: DOCUSATE SODIUM 100 MG GELCAP PO SCH (09:31)
[2017-06-01] MEDS: LEVOFLOXACIN 500 MG/D5W PREMIX 100 ML IV SCH (09:32)
[2017-06-01] MEDS: MAG SULF 2000 MG/WATER PREMIX 100 ML IV SCH ×2 (10:52→12:30)
[2017-06-01] MEDS ORDERED: MAGNESIUM CITRATE 300 ML BTL PO SCH (17:25)
--- NOTE | 2017-06-01 17:30 | NUR ---
DISCHARGE ORDERS ARE IN PLACE. GAVE PATIENT EDUCATION ON CARE FOR HIS INCISIONS, FOLLOW UP WITH PCP, AND SURGEON. GAVE PATIENT INSTRUCTIONS ON S/S OF WHEN TO SEEK EMERGENCY MEDICAL ATTENTION. LET PATIENT KNOW ABOUT MEDICATIONS THAT HAVE BEEN CALLED IN TO THE PREFERRED PHARMACY. TOLD HIM THAT THERE IS A PRESCRIPTION IN HIS DISCHARGE PACKET. PATIENT AND VERBALIZED UNDERSTANDING. PICTURES TAKEN OF PATIENTS ABDOMINAL INCISIONS. IV FLUID STOPPED AT AND IV REMOVED FROM SITE. CATHETER INTACT. PATIENT HAS NO SIGNS AND SYMPTOMS OF ACUTE DISTRESS NOTED AT THIS TIME. WILL WHEEL PATIENT OUT IN WHEELCHAIR.
== END 2017-06-01 17:30 | disposition home or self-care (01) | DRG 710 ==
LOC: MED 09:49 → MTU 13:10
PROVIDERS: ADMIT Family Medicine; ATTEND Family Medicine
PROC: 0FT44ZZ Resection of Gallbladder, Percutaneous Endoscopic Approach (ICD-10-PCS; principal; 2017-05-31)
DX: A41.9 Sepsis, unspecified organism (principal); E44.0 Moderate protein-calorie malnutrition; K80.00 Calculus of gallbladder with acute cholecystitis without obstruction; E83.39 Other disorders of phosphorus metabolism; I10 Essential (primary) hypertension; F41.9 Anxiety disorder, unspecified; E66.9 Obesity, unspecified; Z68.31 Body mass index [BMI] 31.0-31.9, adult; Z88.4 Allergy status to anesthetic agent
CPT/HCPCS: 36415; 71045; 76705; 80048; 80053; 80305; 81001; 83036; 83605; 83690; 83735; 83880; 84100; 84439; 84443; 84484; 85025; 85610; 85730; 86886; 86900; 86901; 87040; 87081; 88304; 93005; 96361; 96374; 96375; 99285; C1887; J0330; J1100; J1170; J1885; J1956; J2175; J2250; J2405; J2704; J3010; J3475; J3490; J7030; Q0092

== ENCOUNTER 2017-10-25 05:05 | Emergency (ER) | payer SELFPAY ==
[~2017-10-25] VITALS: Ht 160 cm; Wt 79.4 kg
[~2017-10-25 05:05] MED LIST changes: +ACET-9529 PO; -ALPR0.252 PO; +ASCO1CAP75 PO; +ATI.5 PO; +BUS5 PO; +CLIN300C5 PO; +DOCU-299 PO; +IBUP-1842 PO; +LISI10TA11 PO; -LORA-476 PO; -METO25TA PO
[2017-10-25 05:11] VITALS: BP 127/72
--- NOTE | 2017-10-25 05:11 | NUR ---
to bed # 11 ambulatory, report given Kishore Barbour.
--- NOTE | 2017-10-25 05:20 | NUR ---
C/O INTERMITTENT, SUB-STERNAL CP X 3 DAYS. NO SOB. AAOX4 WITH EVEN AND STEADY GAIT; LUNGS CLEAR BL; HR EVEN AND REGULAR; PATIENT STATES PAIN OF 6/10. PATIENT POSITIONED FOR COMFORT; HOB ELEVATED; BEDRAILS UP X2; BED DOWN. ER MD MADE AWARE OF PT STATUS.
[2017-10-25] MEDS ORDERED: LORazepam 0.5 MG TAB PO ONE (05:40)
[2017-10-25 06:20] VITALS: BP 122/76
--- NOTE | 2017-10-25 06:20 | NUR ---
Patient discharged with v/s stable. Written and verbal after care instructions given and explained. Patient verbalized understanding. Ambulatory with steady gait. All questions addressed prior to discharge. Advised to follow up with PMD.
== END 2017-10-25 06:20 | disposition home or self-care (01) ==
LOC: MED 05:05
DX: R07.89 Other chest pain (principal); I10 Essential (primary) hypertension; Z88.4 Allergy status to anesthetic agent; Z79.899 Other long term (current) drug therapy
CPT/HCPCS: 93005; 99283

== ENCOUNTER 2019-10-29 12:41 | Emergency (ER) | payer MEDICAID ==
--- NOTE | 2019-10-29 13:00 | NUR ---
no answer in er lobby or tent
[2019-11-06] MEDS ORDERED: LOSA25TA43 PO (07:57)
[2019-11-08] MEDS ORDERED: AZIT250T3 PO (11:00)
== END 2019-10-29 13:00 | disposition left against medical advice (07) ==
LOC: MED 12:41
DX: Z53.21 Procedure and treatment not carried out due to patient leaving prior to being seen by health care provider (principal)

== ENCOUNTER 2019-11-25 10:14 | Emergency (ER) | payer MEDICAID, SELFPAY ==
[~2019-11-25] VITALS: Ht 170.2 cm; Wt 72.6 kg
[~2019-11-25 10:14] MED LIST changes: -ACET-9529 PO; -ASCO1CAP75 PO; -ATI.5 PO; +AZIT250T3 PO; -BUS5 PO; -CLIN300C5 PO; -DOCU-299 PO; -IBUP-1842 PO; -LISI10TA11 PO; +LOSA25TA43 PO
--- NOTE | 2019-11-25 10:28 | NUR ---
Patient ambulated to bed 3. RN evaluating patient at bedside.
[2019-11-25 10:31] VITALS: BP 125/87
--- NOTE | 2019-11-25 10:36 | NUR ---
DR. LOPEZ EVALUATING PT AT BEDSIDE
--- NOTE | 2019-11-25 10:36 | NUR ---
MILAD, . PHONE: [phone]
--- NOTE | 2019-11-25 10:38 | NUR ---
44 Y/O M C/C STERNAL CP RADIATING TO THE UPPER CHEST AND THROAT, 8/10 PAIN, PRESSURE/SQUEEZING SENSATION THAT STARTED LAST NIGHT. PAIN WORSE WITH DEEP INSPIRATION. PT PRESENTS WITH PORTABLE OXYGEN TANK, 2L NC. STATES MILD COUGH, DIZZINESS, SOB. DENIES FEVER, N/V/D. EUPNIC, AMBULATORY, A/OX4, BP/RR WNL. HR 103. PER PT RECENTLY DISCHARGED FROM [facility], PT WITH DISCHARGE PAPERWORK FROM PREVIOUS HOSPITAL VISIT. PER PT POSITIVE COVID, TESTED IN [facility]. SPEAKING IN FULL CLEAR SENTENCES, NAD. CONNECTED TO BEDSIDE MONITOR. HX- HTN RX- LOSARTAN
--- NOTE | 2019-11-25 10:47 | NUR ---
EMT AT BEDSIDE FOR EKG
[2019-11-25] MEDS ORDERED: ACETAMINOPHEN EXTRA STRENGTH 500 MG TAB PO ONE (10:55)
--- NOTE | 2019-11-25 11:15 | NUR ---
PHLEB AT BEDSIDE FOR BLOOD DRAW
--- NOTE | 2019-11-25 11:15 | NUR ---
DR. LOPEZ AT BEDSIDE
--- NOTE | 2019-11-25 11:27 | NUR ---
XRAY AT BEDSIDE
[2019-11-25 11:45] LABS: MEAN CORPUSCULAR HEMOGLOBIN 28 pg (27-31); MEAN CORPUSCULAR HGB CONC 33 g/dL (33-37); MEAN CORPUSCULAR VOLUME 86.4 fL (80-94); NEUTROPHILS % (AUTO) 66.2 % (42.2-75.2); PLATELET COUNT (AUTO) 186 K/uL (140-450); RED BLOOD CELL COUNT(AUTO) 4.98 MIL/uL (4.20-6.10); RED CELL DISTRIBUTION WIDTH 14.1 % (11.6-13.7); WHITE BLOOD COUNT (AUTO) 4.3 K/uL (4.8-10.8)
[2019-11-25 11:46] LABS: BASOPHILS % (AUTO) 0.7 % (0.0-2.0); EOSINOPHILS # (AUTO) 0.1 K/uL (0-0.4); EOSINOPHILS % (AUTO) 2.2 % (0.0-4.0); LYMPHOCYTES % (AUTO) 23.8 % (20.5-51.1); MONOCYTES # (AUTO) 0.3 K/uL (0.8-1.0); MONOCYTES % (AUTO) 7.1 % (1.7-9.3); NEUTROPHILS # (AUTO) 2.8 K/uL (1.8-7.7)
[2019-11-25 12:06] LABS: POTASSIUM 3.8 mmol/L (3.5-5.1)
[2019-11-25 12:07] LABS: ANION GAP 13.1 (8-16); CARBON DIOXIDE 28.7 mmol/L (21-32); CREATININE 0.8 mg/dL (0.6-1.3); TOTAL BILIRUBIN 0.4 mg/dL (0.0-1.0)
[2019-11-25 12:08] LABS: ALBUMIN 3.5 g/dL (3.4-5.0)
--- NOTE | 2019-11-25 13:14 | NUR ---
Dr. Chong at bedside speaking with patient. Roman LAKHANI assisting with translation.
[2019-11-25 13:33] VITALS: BP 132/68
== END 2019-11-25 13:30 | disposition home or self-care (01) ==
LOC: MED 10:14
DX: U07.1 COVID-19 (principal); R07.9 Chest pain, unspecified; J84.9 Interstitial pulmonary disease, unspecified; I10 Essential (primary) hypertension; Z79.899 Other long term (current) drug therapy
CPT/HCPCS: 36415; 71045; 71275; 80053; 83690; 83880; 84484; 85025; 93005; 99285; Q9967

== ENCOUNTER 2020-09-29 18:50 | Emergency (ER) | payer MEDICAID, SELFPAY ==
[~2020-09-29] VITALS: Ht 165.1 cm; Wt 88.0 kg
[~2020-09-29 18:50] MED LIST changes: -AZIT250T3 PO
[2020-09-29 18:55] VITALS: BP 155/88
--- NOTE | 2020-09-29 19:13 | NUR ---
Received report from LESVIA Farias for continuation of care.
--- NOTE | 2020-09-29 19:15 | NUR ---
45 Y/O M BIB SPOUSE FROM HOME PATIENT PRESENTS TO ED WITH DIARRHEA AND ABD PAIN FOR 6 DAYS. PT STATES HE HAS BEEN HAVING NAUSEA, FEELING DIZZY, BUT NO VOMITING. DENIES HEMATURIA AND DYSURIA; SKIN IS PINK/WARM/DRY; AAOX4 WITH EVEN AND STEADY GAIT; LUNGS CLEAR BL; HR EVEN AND REGULAR; PT DENIES ANY FEVER, CP, SOB, OR COUGH AT THIS TIME; PATIENT STATES PAIN OF 10/10 AT THIS TIME; VSS; PATIENT POSITIONED FOR COMFORT; HOB ELEVATED; BEDRAILS UP X2; BED DOWN. ER MD MADE AWARE OF PT STATUS. PMH: HTN MED: LOSARTAN ALLERGY: ANESTHESIA
--- NOTE | 2020-09-29 19:55 | NUR ---
Patient lying in bed, locked in lowest position, HOB elevated, x1 side rail up. Patient AOx4, breathing even and unlabored. Patient reports abdominal pain 5/10, diarrhea x6 days, and dizzyness. Bowel sounds present in all quadrants. at bedside. NAD doted, will continue to monitor.
--- NOTE | 2020-09-29 20:33 | NUR ---
Dr. Price examining patient.
[2020-09-29] MEDS ORDERED: NACL 0.9% 1,000 ML IV ONE (20:40)
[2020-09-29] MEDS ORDERED: ONDANSETRON 4 MG/2 ML VIAL IVP ONE (20:40)
[2020-09-29] MEDS ORDERED: PANTOPRAZOLE 40 MG INJ VIAL IVP ONE (20:40)
[2020-09-29 21:05] LABS: BASOPHILS % (AUTO) 0.6 % (0.0-2.0); EOSINOPHILS % (AUTO) 1.2 % (0.0-4.0); HEMATOCRIT 44.2 % (36-52); HEMOGLOBIN 14.7 g/dL (12.0-18.0); LYMPHOCYTES # (AUTO) 0.9 K/uL (2.0-11.5); MEAN CORPUSCULAR HEMOGLOBIN 29 pg (27-31); MEAN CORPUSCULAR HGB CONC 33 g/dL (33-37); MEAN CORPUSCULAR VOLUME 85.4 fL (80-94); MONOCYTES # (AUTO) 0.4 K/uL (0.8-1.0); MONOCYTES % (AUTO) 9.9 % (1.7-9.3); NEUTROPHILS # (AUTO) 2.6 K/uL (1.8-7.7); NEUTROPHILS % (AUTO) 65.3 % (42.2-75.2); PLATELET COUNT (AUTO) 207 K/uL (140-450); RED BLOOD CELL COUNT(AUTO) 5.17 MIL/uL (4.20-6.10); RED CELL DISTRIBUTION WIDTH 13.5 % (11.6-13.7)
--- NOTE | 2020-09-29 21:26 | NUR ---
Patient taken to CT.
[2020-09-29 21:28] LABS: ALBUMIN 3.6 g/dL (3.4-5.0); ANION GAP 17.7 (8-16); CARBON DIOXIDE 25.6 mmol/L (21-32); CREATININE 0.9 mg/dL (0.6-1.3); POTASSIUM 4.3 mmol/L (3.5-5.1); TOTAL BILIRUBIN 0.3 mg/dL (0.0-1.0)
--- NOTE | 2020-09-29 22:16 | NUR ---
ERMD at bedside for continuation of care.
--- NOTE | 2020-09-29 23:38 | NUR ---
STOOL SPECIMEN COLLECTED AND SENT TO LAB.
[2020-09-30] MEDS ORDERED: ONDA-24 SL (00:26)
[2020-09-30] MEDS ORDERED: PANT40EC PO (00:27)
[2020-09-30 01:05] VITALS: BP 108/63
--- NOTE | 2020-09-30 01:05 | NUR ---
Patient discharged with v/s stable. Written and verbal after care instructions given and explained. Patient alert, oriented and verbalized understanding of instructions. Ambulatory with steady gait. All questions addressed prior to discharge. ID band removed. Patient advised to follow up with PMD. Rx of PROTONIX, ZOFRAN given. Patient educated on indication of medication including possible reaction and side effects. Opportunity to ask questions provided and answered.
== END 2020-09-30 01:05 | disposition home or self-care (01) ==
LOC: MED 18:50
DX: R19.7 Diarrhea, unspecified (principal); R63.0 Anorexia; R42 Dizziness and giddiness; I10 Essential (primary) hypertension
CPT/HCPCS: 36415; 74176; 80053; 82272; 85025; 87045; 87070; 89055; 96361; 96374; 96375; 99284; C9113; J2405; J7030

== ENCOUNTER 2020-12-05 11:32 | Emergency (ER) | payer MEDICAID ==
[~2020-12-05] VITALS: Ht 165.1 cm; Wt 88.9 kg
[~2020-12-05 11:32] MED LIST changes: +ONDA-24 SL; +PANT40EC PO
[2020-12-05 11:46] VITALS: BP 140/84
--- NOTE | 2020-12-05 12:56 | NUR ---
PATIENT LEFT WITHOUT BEING SEEN BY DR. ALMANZAR. NO FURTHER CARE PROVIDED FOR PATIENT.
== END 2020-12-05 12:55 | disposition left against medical advice (07) ==
LOC: MED 11:32
DX: S20.369A Insect bite (nonvenomous) of unspecified front wall of thorax, initial encounter (principal); Z53.21 Procedure and treatment not carried out due to patient leaving prior to being seen by health care provider; W57.XXXA Bitten or stung by nonvenomous insect and other nonvenomous arthropods, initial encounter; Y93.89 Activity, other specified; Y92.89 Other specified places as the place of occurrence of the external cause; Y99.8 Other external cause status